=== PATIENT | female | born 1985 | race Caucasian/White ===

== ENCOUNTER 2018-04-06 21:07 | Emergency (ER) | payer OTHER ==
[~2018-04-06 21:07] MED LIST: DOCO100C PO; NITR100C56 PO; PREN1TAB47 PO
--- NOTE | 2018-04-06 22:11 | NUR ---
patient arrives to [facility] stating she has had two days of a sore throat. she has difficulty swallowing and eating her throat is so sore. she has recently had nausea and vomiting for two weeks. she denies being around any sick people in her household. she has had stuffy runny nose for two weeks. she states she is 10 weeks and lmp was 11-22-18. states vaginal discharge or pain. placed in bed, gown, rails up, on monitor.
[2018-04-06] MEDS ORDERED: IBUPROFEN 600 MG TABLET ONE (23:45)
[2018-04-06] MEDS ORDERED: ACETAMINOPHEN 325 MG TABLET ONE (23:45)
[2018-04-06 23:50] VITALS: BP 106/68
[2018-04-07] MEDS ORDERED: ACETAMINOPHEN 325 MG TABLET PO ONE
[2018-04-07] MEDS ORDERED: IBUPROFEN 200 MG TABLET PO ONE
== END 2018-04-06 23:52 | disposition home or self-care (01) ==
LOC: ED 23:00
DX: J02.0 Streptococcal pharyngitis (principal)
CPT/HCPCS: 93005; 99283

== ENCOUNTER 2018-08-27 21:11 | Outpatient (CLI) | payer OTHER ==
[~2018-08-27] VITALS: Ht 177.8 cm; Wt 118.2 kg
[~2018-08-27 21:11] MED LIST changes: -PREN1TAB47 PO; +PRENATAL ONE T1 EACH PO
[2018-08-27 21:33] VITALS: BP 136/85
[2018-08-27 21:54] LABS: MICROSCOPIC AUTO
== END 2018-08-27 22:10 | disposition home or self-care (01) ==
LOC: LDOP 21:11
PROVIDERS: ATTEND Obstetrics & Gynecology Maternal & Fetal Medicine
DX: O36.8130 Decreased fetal movements, third trimester, not applicable or unspecified (principal); O09.513 Supervision of elderly primigravida, third trimester; Z3A.30 30 weeks gestation of pregnancy
CPT/HCPCS: 59025; 81001; 87086; 99211; G0463

== ENCOUNTER 2018-09-19 19:29 | Outpatient (CLI) | payer OTHER ==
[~2018-09-19] VITALS: Ht 177.8 cm; Wt 120.5 kg
[2018-09-19 19:57] LABS: MICROSCOPIC AUTO
[2018-09-19 20:58] LABS: BASOPHILS # (AUTO) 0.04 x10^3/uL (0-0.1); BASOPHILS % (AUTO) 0 % (0-1); EOSINOPHILS # (AUTO) 0.17 x10^3/uL (0-0.4); EOSINOPHILS % (AUTO) 2 % (1-7); LYMPHOCYTES # (AUTO) 2.77 x10^3/uL (1-3.4); LYMPHOCYTES % (AUTO) 24 % (22-44); MD NO; MEAN CORPUSCULAR HEMOGLOBIN 28.8 pg (27.0-34.8); MEAN CORPUSCULAR VOLUME 87.3 fL (80-100); MEAN PLATELET VOLUME 8.3 fL (7.4-10.4); MONOCYTES # (AUTO) 1.09 x10^3/uL (0.2-0.8); MONOCYTES % (AUTO) 9 % (2-9); NEUTROPHILS # (AUTO) 7.71 x10^3/uL (1.8-6.8); NEUTROPHILS % (AUTO) 66 % (42-75); PLATELET COUNT 261 x10^3/uL (130-400); RED BLOOD COUNT 4.59 x10^6/uL (3.82-5.3); RED CELL DISTRIBUTION WIDTH 16.1 % (9.6-15.2)
[2018-09-19 21:04] LABS: ALANINE AMINOTRANSFERASE 34 U/L (12-78); ALBUMIN 2.7 g/dL (3.4-5.0); ANION GAP 11 mmol/L (5-15); CALCIUM 9.6 mg/dL (8.5-10.1); CHLORIDE 107 mmol/L (98-107); CREATININE 0.78 mg/dL (0.55-1.02)
[2018-09-19 21:06] LABS: CREATININE,URINE RANDOM 33.4 mg/dL
[2018-09-19 21:07] LABS: ALKALINE PHOSPHATASE 82 U/L (45-117); BILIRUBIN,TOTAL 0.5 mg/dL (0.2-1.0); TOTAL PROTEIN 7.3 g/dL (6.4-8.2)
== END 2018-09-19 22:30 | disposition home or self-care (01) ==
LOC: LDOP 19:29
PROVIDERS: ATTEND Obstetrics & Gynecology
DX: O09.513 Supervision of elderly primigravida, third trimester (principal); O26.893 Other specified pregnancy related conditions, third trimester; R10.9 Unspecified abdominal pain; Z3A.33 33 weeks gestation of pregnancy
CPT/HCPCS: 36415; 80053; 81001; 81050; 82570; 84156; 84550; 85025; 87086

== ENCOUNTER 2018-09-30 10:10 | Outpatient (CLI) | payer OTHER ==
[2018-09-30 10:23] VITALS: BP 142/73
[2018-09-30 11:12] LABS: CREATININE,URINE RANDOM 18.9 mg/dL
[2018-09-30 11:28] LABS: BASOPHILS # (AUTO) 0.01 x10^3/uL (0-0.1); BASOPHILS % (AUTO) 0 % (0-1); EOSINOPHILS # (AUTO) 0.11 x10^3/uL (0-0.4); EOSINOPHILS % (AUTO) 1 % (1-7); LYMPHOCYTES # (AUTO) 2.64 x10^3/uL (1-3.4); LYMPHOCYTES % (AUTO) 19 % (22-44); MD NO; MEAN CORPUSCULAR HGB CONC 32.6 g/dL (32.4-35.8); MEAN CORPUSCULAR VOLUME 88.9 fL (80-100); MEAN PLATELET VOLUME 7.9 fL (7.4-10.4); MONOCYTES # (AUTO) 1.16 x10^3/uL (0.2-0.8); MONOCYTES % (AUTO) 8 % (2-9); NEUTROPHILS # (AUTO) 10.14 x10^3/uL (1.8-6.8); NEUTROPHILS % (AUTO) 72 % (42-75); PLATELET COUNT 257 x10^3/uL (130-400); RED BLOOD COUNT 4.75 x10^6/uL (3.82-5.3)
[2018-09-30 11:41] LABS: ALBUMIN 2.7 g/dL (3.4-5.0); ANION GAP 8 mmol/L (5-15); CALCIUM 9.5 mg/dL (8.5-10.1); CHLORIDE 106 mmol/L (98-107)
[2018-09-30 11:45] LABS: ALANINE AMINOTRANSFERASE 26 U/L (12-78); ALKALINE PHOSPHATASE 93 U/L (45-117); BILIRUBIN,TOTAL 0.6 mg/dL (0.2-1.0); CREATININE 0.76 mg/dL (0.55-1.02); TOTAL PROTEIN 7.1 g/dL (6.4-8.2)
[2018-10-16] MEDS ORDERED: OXYC-302 PO (11:01)
[2018-10-16] MEDS ORDERED: IBUP-1222 PO (11:01)
== END 2018-09-30 12:55 | disposition home or self-care (01) ==
LOC: LDOP 10:10
PROVIDERS: ATTEND Obstetrics & Gynecology
DX: O13.3 Gestational [pregnancy-induced] hypertension without significant proteinuria, third trimester (principal); Z3A.36 36 weeks gestation of pregnancy
CPT/HCPCS: 36415; 59025; 80053; 82570; 84156; 84550; 85025; 99211; G0463

== ENCOUNTER 2018-10-03 12:55 | Outpatient (CLI) | payer OTHER ==
[~2018-10-03] VITALS: Ht 179.1 cm; Wt 122.7 kg
[2018-10-03 13:07] VITALS: BP 136/86
[2018-10-16] MEDS ORDERED: IBUP-1222 PO (11:01)
[2018-10-16] MEDS ORDERED: OXYC-302 PO (11:01)
== END 2018-10-03 15:36 | disposition home or self-care (01) ==
LOC: LDOP 12:55
PROVIDERS: ATTEND Obstetrics & Gynecology
DX: O36.8130 Decreased fetal movements, third trimester, not applicable or unspecified (principal); O09.513 Supervision of elderly primigravida, third trimester; Z3A.35 35 weeks gestation of pregnancy
CPT/HCPCS: 59025; 76819; 99211; G0463

== ENCOUNTER 2018-10-04 23:08 | Outpatient (CLI) | payer OTHER ==
[~2018-10-04] VITALS: Ht 177.8 cm; Wt 124.1 kg
[2018-10-04 23:49] LABS: MICROSCOPIC AUTO
[2018-10-05 00:07] LABS: BASOPHILS # (AUTO) 0.03 x10^3/uL (0-0.1); BASOPHILS % (AUTO) 0 % (0-1); EOSINOPHILS # (AUTO) 0.06 x10^3/uL (0-0.4); EOSINOPHILS % (AUTO) 1 % (1-7); LYMPHOCYTES # (AUTO) 2.35 x10^3/uL (1-3.4); LYMPHOCYTES % (AUTO) 21 % (22-44); MD NO; MEAN CORPUSCULAR HEMOGLOBIN 28.5 pg (27.0-34.8); MEAN CORPUSCULAR HGB CONC 32.5 g/dL (32.4-35.8); MEAN CORPUSCULAR VOLUME 87.7 fL (80-100); MEAN PLATELET VOLUME 8.1 fL (7.4-10.4); MONOCYTES # (AUTO) 1.17 x10^3/uL (0.2-0.8); MONOCYTES % (AUTO) 10 % (2-9); NEUTROPHILS # (AUTO) 7.71 x10^3/uL (1.8-6.8); NEUTROPHILS % (AUTO) 68 % (42-75); PLATELET COUNT 220 x10^3/uL (130-400); RED BLOOD COUNT 4.33 x10^6/uL (3.82-5.3); RED CELL DISTRIBUTION WIDTH 17.1 % (9.6-15.2)
[2018-10-05 00:15] LABS: ALANINE AMINOTRANSFERASE 24 U/L (12-78); ALBUMIN 2.2 g/dL (3.4-5.0); ANION GAP 8 mmol/L (5-15); CALCIUM 8.5 mg/dL (8.5-10.1); CHLORIDE 107 mmol/L (98-107); CREATININE 0.89 mg/dL (0.55-1.02)
[2018-10-05 00:17] LABS: ALKALINE PHOSPHATASE 87 U/L (45-117); BILIRUBIN,TOTAL 0.3 mg/dL (0.2-1.0)
[2018-10-16] MEDS ORDERED: OXYC-302 PO (11:01)
[2018-10-16] MEDS ORDERED: IBUP-1222 PO (11:01)
== END 2018-10-05 00:55 | disposition home or self-care (01) ==
LOC: LDOP 23:08
PROVIDERS: ATTEND Obstetrics & Gynecology
DX: O09.523 Supervision of elderly multigravida, third trimester (principal); O36.8130 Decreased fetal movements, third trimester, not applicable or unspecified; O26.893 Other specified pregnancy related conditions, third trimester; R10.31 Right lower quadrant pain; Z3A.36 36 weeks gestation of pregnancy
CPT/HCPCS: 36415; 59025; 80053; 81001; 82570; 84156; 84550; 85025; 87086; 99211; G0463

== ENCOUNTER 2018-10-13 09:44 | Inpatient (IN) | payer OTHER ==
[~2018-10-13] VITALS: Ht 177.8 cm; Wt 125.0 kg
[2018-10-16 07:50] VITALS: BP 135/90
== END 2018-10-16 12:25 | disposition home or self-care (01) | DRG 788 ==
LOC: 2NE 09:44 → LDIP 09:52 → 2NW 15:37
PROVIDERS: ADMIT Obstetrics & Gynecology; ATTEND Obstetrics & Gynecology
PROC: 10D00Z1 Extraction of Products of Conception, Low, Open Approach (ICD-10-PCS; principal; 2018-10-13)
DX: O32.1XX0 Maternal care for breech presentation, not applicable or unspecified (principal); O14.94 Unspecified pre-eclampsia, complicating childbirth; Z3A.37 37 weeks gestation of pregnancy; Z37.0 Single live birth; Z80.3 Family history of malignant neoplasm of breast; Z82.49 Family history of ischemic heart disease and other diseases of the circulatory system; Z83.3 Family history of diabetes mellitus; Z87.891 Personal history of nicotine dependence
CPT/HCPCS: 36415; 82803; 85025; 86850; 86900; G0378; J0690; J1170; J1885; J2405; J3010; J2590; J2765; J7120

== ENCOUNTER 2018-10-25 20:31 | Emergency (ER) | payer OTHER ==
[~2018-10-25] VITALS: Ht 177.8 cm; Wt 113.8 kg
[2018-10-25 23:46] VITALS: BP 136/79
== END 2018-10-25 23:50 | disposition home or self-care (01) ==
LOC: ED 23:41
DX: R10.33 Periumbilical pain (principal); R10.32 Left lower quadrant pain; R11.2 Nausea with vomiting, unspecified; E86.0 Dehydration; N93.9 Abnormal uterine and vaginal bleeding, unspecified; Z87.891 Personal history of nicotine dependence
CPT/HCPCS: 36415; 76856; 80053; 81001; 85025; 87086; 96361; 96374; 96375; 99284; J1885; J2405; J7030